=== PATIENT | male | born 1990 | race Caucasian/White ===

== ENCOUNTER 2016-06-20 13:48 | Emergency (ER) | payer OTHER ==
--- NOTE | ~2016-06-20 | CR2 ---
[facility] A Service of [facility] RADIOLOGY TEXT RESULTS PATIENT: DIETER FLORENTINO LOCATION: SED : 88 UNIT #: [id number] AGE: [address]: Maci Olguin APRN SEX: M ORDER DR: [id number] [place] [id number] E MR#: [id number] Acc #: [id number] NAME: DIETER FLORENTINO : 1990 SEX: M STUDY DATE/TIME: 06/20/2016 15:51 UNIT: SED ROOM: STUDY DESCRIPTION: CR Abdomen Acute Series Attending Physician: Maci Olguin A.P.R.N. Ordering Physician: Maci Olguin A.P.R.N. Primary Care Physician: No Primary Care Physician MEDICAL IMAGING REPORT This report is preliminary unless electronic signature is present. EXAM Acute abdomen series, 06/20/2016. HISTORY Weakness and dizziness for the last 4-5 days with associated vomiting and abdominal pain. COMPARISON Chest x-ray, 09/20/2010. FINDINGS Single frontal view of the chest taken at the time of the abdominal examination is within normal limits. AP, supine, and upright examination of the abdomen shows a normal gas and fecal pattern distribution throughout large and small bowel without distended loops in either area. There is no indication of extraluminal air, unusual visceromegaly, or soft tissue density mass. The renal definitions are fairly well demarcated and normal in shape and size. No abnormal intra-abdominal calcifications are present. IMPRESSION Normal acute abdomen series. Dictated by... Arvind Mayo Jr., M.D. THIS IS AN ELECTRONICALLY VERIFIED REPORT Arvind Mayo Jr., M.D. at 06/21/2016 8:25 AM GERSONK/adrian [facility] A Service [facility] RADIOLOGY TEXT RESULTS PATIENT: DIETER FLORENTINO LOCATION: SED : [birth year] UNIT #: [id number] AGE: [address]: Maci Olguin APRN SEX: M ORDER DR: TD: 06/20/2016 18:16 JOB #: [id number] MEDICAL IMAGING REPORT Page 1 of 1
[2016-06-20 14:45] LABS: URINE SOURCE CLEAN CATCH
[2016-06-20 14:47] LABS: URINE APPEARANCE HAZY; URINE BLOOD NEG (NEG); URINE COLOR DK YELLOW; URINE GLUCOSE NEG (NORM); URINE KETONE 1+ (NEG); URINE LEUKOCYTE ESTERASE NEG (NEG); URINE NITRATE NEG (NEG); URINE PROTEIN 2+ (NEG); URINE SPECIFIC GRAVITY >=1.030 (1.003-1.035)
[2016-06-20 15:02] LABS: BASOPHIL% 0.4 % (0-2.5); EOSINOPHIL% 0.2 % (0.0-7.0); HEMOGLOBIN 16.3 gm/dL (13.0-16.0); LYMPHOCYTE# 0.9 X10e3 (1.0-3.5); LYMPHOCYTE% 9.3 % (17.0-45.0); MEAN CELL VOLUME 91.3 FL (83-96); MEAN CORPUSCULAR HEMOGLOBIN 31.6 PG (28-34); MEAN CORPUSCULAR HGB CONC 34.6 g/dL (30-36); MEAN PLATELET VOLUME 9.2 FL (6.5-11.5); MONOCYTE# 0.5 X10e3 (0-1.0); MONOCYTE% 5.1 % (3.0-12.0); NEUTROPHIL# 7.8 X10e3 (1.5-7.1); PLATELET COUNT 230 X10e3 (140-420); RED BLOOD COUNT 5.15 X10e (3.90-5.60); RED CELL DISTRIBUTION WIDTH 13.1 % (11.0-15.5); WHITE BLOOD COUNT 9.1 X10e3 (4.0-10.5)
[2016-06-20 15:03] LABS: MICRO INDICATED? YES; URINE BILIRUBIN NEG (NEG)
[2016-06-20 15:07] LABS: CULTURE INDICATED? YES; URINE BACTERIA 1+ (NEG); URINE MUCUS PRESENT; URINE SQUAMOUS EPITHELIAL CELL FEW /[HPF]; URINE TRANSITIONAL EPI CELLS FEW /[HPF]; URINE WHITE BLOOD CELL CAST 0-2 /[HPF]
[2016-06-20 15:08] LABS: DIFF IND NO
[2016-06-20 15:25] LABS: ALBUMIN SERUM 4.9 g/dL (3.5-5.0); BILIRUBIN, DIRECT 0.1 mg/dL (0.0-0.2); BILIRUBIN,INDIRECT 0.5 mg/dL (0.0-0.9); BILIRUBIN,TOTAL 0.6 mg/dL (0.2-2.0); BUN/CREATININE RATIO 12.72; CALCIUM SERUM 9.3 mg/dL (8.4-10.2); CREATININE SERUM 1.1 mg/dL (0.6-1.4); GLOM FILT RATE Estimated 91.5 mL/min (>60); POTASSIUM 3.3 mmol/L (3.5-5.1); PROTEIN TOTAL SERUM 8.7 g/dL (6.0-8.3)
[2016-06-20 15:30] LABS: AMPHETAMINE NEG (NEG); BARBITURATES NEG (NEG); BENZODIAZEPINES NEG (NEG); COCAINE NEG (NEG); MARIJUANA POS (NEG); OPIATES POS (NEG); TRICYCLIC ANTIDEPRESSANTS NEG (NEG); U METHADONE NEG (NEG)
== END 2016-06-20 17:13 | disposition home or self-care (01) ==
LOC: SED 13:48
PROVIDERS: Nurse Practitioner
DX: K29.00 Acute gastritis without bleeding (principal)
CPT/HCPCS: 36415; 74022; 80048; 80076; 80307; 81003; 82150; 83690; 85025; 87086; 96361; 96374; 96375; 99284; C9113; J2405; J2550